=== PATIENT | male | born 1990 | race Caucasian/White ===

== ENCOUNTER 2019-05-28 21:28 | Emergency (ER) | payer SELFPAY ==
[2019-05-28 21:29] VITALS: BP 133/77; PULSE 90; RESP 16; TEMP 36.9; O2SAT 98; BMI 38.0
[2019-05-28 21:55] VITALS: O2SAT 98
--- NOTE | 2019-05-28 22:16 | EKG12_ITS ---
Test Reason : SOB Blood Pressure : / mmHG Vent. Rate : 092 BPM Atrial Rate : 092 BPM P-R Int : 138 ms QRS Dur : 080 ms QT Int : 324 ms P-R-T Axes : 030 044 032 degrees QTc Int : 400 ms Normal sinus rhythm Normal ECG Confirmed by HUY BENAVIDEZ, KAY ([id number]), supervising editor trailer NANCY GUTHRIE ([id number]) on 05/30/2019 1:38:07 PM Referred By: [facility] Confirmed By:KAY SON MD
--- NOTE | 2019-05-28 22:18 | ED.DCSUM_ITS ---
History of Present Illness Chief Complaint: Shortness of Breath Informant: Patient Onset: Today Current Severity: Mild Maximum Severity: Moderate Narrative: Patient presents with shortness of breath for the past 6 hours. He states he was at a local store when he had sudden onset of pain around the left lower ribs. He states he bent over to hold onto the cart. Intermittently since that time he is had some wheezing and dizziness. He now states he has pain around lower ribs to both the left and right side. Patient denies any recent trauma. He did wrestle last evening but states he had no chest pain or shortness of breath until today. He occasionally smokes and uses marijuana. He does not use a vape pen. Past Medical History - Allergies and Home Meds Allergies/Adverse Reactions: Allergies No Known Allergies Allergy (Verified 05/28/19 21:33) Prior records reviewed: Yes Past Medical History: - - Reviewed Lives: With Family Smoking Status: Current every day smoker Drugs: Marijuana Review of Systems General: Denies: Chills, Fever Eyes: Denies: Visual changes - bilaterally ENT: Denies: Bilateral ear pain Cardiovascular: Reports: Chest pain - Lateral lower ribs Respiratory: Reports: Dyspnea, Cough, - - Intermittent wheezing. Denies: Sputum Gastrointestinal: Denies: Abdominal pain, Nausea, Vomiting Musculoskeletal: Denies: Swelling, Extremity Pain Skin: Denies: Rash Neurological: Denies: Headache Hematologic: Denies: Easy bruising Allergy: Denies: Uticaria Physical Exam Vital Signs/Narrative: Vital Signs Temp Pulse Resp BP Pulse Ox 05/28/19 21:29 98.5 F 90 16 133/77 H 98 Inital Vital Signs reviewed: Yes General: Well nourished, Well developed Head: Normocephalic ENT: Moist mucous membranes Neck: Supple Cardiovascular: Regular rate, Regular rhythm Respiratory: No distress, - - Diminished bilaterally but breath sounds are present bilaterally. Abdomen: Soft, Nontender Back: Nontender Extremities: Nontender, No edema Skin: Normal color, No rash Neurological: Alert, Oriented x3 Psychological: Normal affect Diagnostic/Tx/Re-eval Impressions Chest X-Ray 05/28/19 22:20 IMPRESSION: Normal x-ray examination of the chest. Electronically Signed: Satish Martinez MD at 22:50 EDT , Service support , 05/28/19 22:20 Chest 1 View (Portable) [RAD] Stat Laboratory Results 05/28/19 05/28/19 05/28/19 22:45 22:45 22:45 WBC 12.5 H RBC 5.12 Hgb 16.1 Hct 46.8 MCV 91.4 MCH 31.4 MCHC 34.4 RDW Std Deviation 43.8 RDW Coeff of Luisana 13.1 Plt Count 212 MPV 9.8 Immature Gran % (Auto) 0.300 Neut % (Auto) 79.3 H Lymph % (Auto) 12.6 L Wright % (Auto) 4.4 Eos % (Auto) 2.9 Baso % (Auto) 0.5 Absolute Neuts (auto) 10.0 H Absolute Lymphs (auto) 1.58 Nucleated RBC % 0 D-Dimer Quant (PE/DVT) < 0.27 L Sodium 138 Potassium 4.1 Chloride 106 Carbon Dioxide 26.0 Anion Gap 6 BUN 20 H Creatinine 0.93 Estim Creat Clear Calc 129.80 Est GFR (MDRD) Af Amer 124 Est GFR (MDRD) Non-Af 102 BUN/Creatinine Ratio 21.5 H Glucose 87 Calcium 8.7 Troponin I < 0.015 - EKG Initial EKG Interpretation: Sinus Rhythm - Sinus at 92 with no acute ischemia. - Medical Decision Making Patient was initially treated with Toradol and IV fluids. On repeat evaluation he had some improvement but increased air movement was noted on lung auscultation. He was given a dose of Solu-Medrol, morphine, and 2 additional breathing treatments. On repeat evaluation at this time he is lying down flat in bed and feels significantly improved. He does report having improvement with the breathing treatments and feels that he is now able to take a deeper breath. He will be given a prednisone taper for home along with naproxen. He will be given albuterol MDI with spacer. ED Disposition - Plan for ED Patient: Disposition: Home or Assisted Living Diagnosis: Dyspnea, Chest pain, atypical Instructions: CHEST PAIN, Uncertain Cause, ED Dyspnea Prescriptions: Naproxen [Naprosyn] 500 mg PO BID PRN PRN #20 tablet PRN Reason: Pain Prednisone 10 mg PO UD #33 tablet Referrals: Jaspal Mcintosh III, MD [STAFF PHYSICIAN] - As Needed
--- NOTE | 2019-05-28 22:20 | RAD_ITS ---
STUDY: X-RAY CHEST REASON FOR EXAM: Male, 28 years old. Chest and back pain TECHNIQUE: Single AP portable view of the chest. COMPARISON: None. FINDINGS: monitoring tech leads are present. The lungs are clear and expanded. There is no demonstrated pleural abnormality. Normal size heart. Normal mediastinum and saravanan. Normal visualized pulmonary arteries. Normal visualized aortic arch and descending thoracic aorta. Normal visualized thoracic spine. Normal visualized ribs, clavicles, and shoulders. There is no demonstrated abnormality of the visualized soft tissue structures of the upper abdomen. RAD/Chest 1 View (Portable) IMPRESSION: Normal x-ray examination of the chest. Electronically Signed: Satish Martinez MD at 22:50 EDT , Service support ,
[2019-05-28 22:30] VITALS: PULSE 97; RESP 24
[2019-05-28] MEDS: Ipratropium/Albuterol Sulfate 3 ML AMPUL.NEB INHALATION (22:30)
[2019-05-28 22:40] VITALS: O2SAT 97
[2019-05-28] MEDS: Ketorolac 30 MG/ML Syringe IV (22:42)
[2019-05-28] MEDS: 0.9% Normal Saline 1,000 ML 150 ML IV (22:43)
[2019-05-28 22:44] VITALS: PULSE 93; RESP 31; O2SAT 98
[2019-05-28 22:59] LABS: Absolute Lymphocyte Count 1.58 X10^3/uL (0.83-4.51); Basophil# 0.06 X10^3/uL; Basophil% 0.5 % (0-1); Eosinophil# 0.36 X10^3/uL; Eosinophils% 2.9 % (0-5); Hematocrit 46.8 % (40-54); Hemoglobin 16.1 g/dL (13.0-16.5); Lymphocyte # 1.58 X10^3/ul (4.0); Lymphocyte % 12.6 % (19-41); Mean Corp Hgb Conc 34.4 g/dL (32-36); Mean Corpuscular Hgb 31.4 pg (27.0-32.0); Mean Corpuscular Volume 91.4 fL (80-94); Mean Platelet Vol. 9.8 fl (6.2-12.0); Monocyte# 0.55 X10^3/uL; Monocyte% 4.4 % (0-10); NRBC Flagged by Analyzer 0 % (0-5); Neutrophil # 9.95 X10^3/uL (2.7-7.7); Neutrophil % 79.3 % (47-70); Platelet Count 212 K/mm3 (150-450); RBC Distribution Width CV 13.1 % (11.6-14.6); RBC Distribution Width SD 43.8 fl (35.1-43.9); Red Blood Count 5.12 M/mm3 (4.6-6.2); White Blood Count 12.5 K/mm3 (4.4-11.0)
[2019-05-28 23:11] LABS: D-Dimer Quantitative (DVT/PE) < 0.27 FEU/ug/m (0.27-0.49)
[2019-05-28 23:12] LABS: Anion Gap 6 (5-15); BUN 20 mg/dL (7-18); BUN/Creat Ratio 21.5 RATIO (10-20); Calcium,Total 8.7 mg/dL (8.5-10.1); Chloride 106 mmol/L (98-107); Creatinine, Serum 0.93 mg/dL (0.70-1.30); EST Glomerular Filtration Rate 102 mL/min (>60); Est Glom Filt Rate - Afr Amer 124 mL/min (>60); Glucose 87 mg/dL (74-106); Potassium 4.1 mmol/L (3.5-5.1); Sodium Level 138 mmol/L (136-145)
[2019-05-28 23:35] VITALS: PULSE 90; RESP 14
[2019-05-28] MEDS: Albuterol 2.5 MG/3 ML VIAL.NEB. INHALATION ×2 (23:35)
[2019-05-28] MEDS: MethylPREDNISolone 125 MG/2 ML Vial IV (23:41)
[2019-05-28] MEDS: Morphine 4 MG/ML Syringe IV (23:41)
[2019-05-29 00:39] VITALS: BP 125/68; PULSE 87; RESP 12; O2SAT 98
== END 2019-05-29 00:49 | disposition home or self-care (01) ==
PROVIDERS: Emergency Provider Emergency Medicine
DX: R06.00 Dyspnea, unspecified (principal); R07.89 Other chest pain; F17.200 Nicotine dependence, unspecified, uncomplicated
CPT/HCPCS: 71045; 80048; 82803; 84484; 85025; 85379; 93005; 94640; 99284; J7030; A4216

== ENCOUNTER → 2022-05-15 | Outpatient (CLI) | payer SELFPAY ==
[2022-05-15 12:22] LABS: Erythrocyte Sedimentation Rate 15 mm/hr (0-20)
[2022-05-15 12:24] LABS: Internal QC Validated? YES +Cl - CLEAR BKGD; Monotest Negative (Negative)
== END | disposition home or self-care (01) ==
PROVIDERS: Referring Provider Nurse Practitioner; Visit Provider Nurse Practitioner
DX: R53.83 Other fatigue (principal); R53.81 Other malaise; R50.9 Fever, unspecified
CPT/HCPCS: 85652; 86140; 86308